=== PATIENT | male | born 1945 | race Caucasian/White ===

== ENCOUNTER → 2016-08-06 | Outpatient (CLI) | payer OTHER ==
[~2016-08-06] MED LIST: GADAVIST IV PRN; OMEG10007 PO; Vitamin D PO
--- NOTE | 2016-08-06 10:42 | DIAGNOSTIC IMAGING REPORT ---
MRI LUMBAR SPINE COMBINATION CLINICAL HISTORY: Metastatic disease. Thoracic lesion. Evaluate for lumbar metastatic disease TECHNIQUE: Sagittal and axial T1, T2 and STIR images were obtained. Imaging was performed before and after the administration of 9 cc of intravenous Gadavist COMPARISON STUDY: PET/CT scan dated November 2015. Octreotide scan dated 02/19/2016 OBSERVATIONS: There are several Schmorl's nodes. There are no areas of marrow replacement suspicious for metastatic disease. L1-2: No disc protrusions or extrusions. No evidence of spinal canal or neural foraminal compromise. L2-3: No disc protrusions or extrusions. No evidence of spinal canal or neural foraminal compromise. L3-4: No disc protrusions or extrusions. No evidence of spinal canal or neural foraminal compromise. L4-5: There is a circumferential disc bulge. There is minimal triangular spinal canal narrowing. There is enhancement of the annulus. L5-S1: No disc protrusions or extrusions. No evidence of spinal canal or neural foraminal compromise. The conus medullaris and cauda equina appear normal. 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 No evidence of metastatic disease 2. Disc bulge and minor spinal stenosis at the L4-5 level. Electronically signed by: Romero Krause M.D. 08/06/2016 10:39 AM Dictated Date/Time: 08/06/2016 10:32 AM
--- NOTE | 2016-08-06 10:45 | DIAGNOSTIC IMAGING REPORT ---
THORACIC SPINE MRI WITH AND WITHOUT CONTRAST HISTORY: Neuroendocrine tumor. Evaluate thoracic lesion. TECHNIQUE: Multiplanar multisequence MRI of the thoracic spine was performed both before and after the intravenous administration of contrast. COMPARISON: Octreotide scan 02/20/2016. Brain MRI 01/14/2012. FINDINGS: Pot Fluxer images demonstrate stable postoperative changes within the right cerebellar hemisphere. The thoracic spinal cord is normal in course, caliber, and signal intensity. A few small broad-based posterior disc bulges seen within the lower thoracic spine without significant central canal or neural foraminal narrowing. Mild degenerative disease throughout the majority of the thoracic spine. Minimal superior endplate compression deformity at T3 is likely old. No acute fractures identified. There is a 1.7 cm T2 hyperintense, T1 hypointense enhancing lesion within the left side of the T11 vertebral body. This likely corresponds to the abnormal radiotracer uptake on the prior octreotide scan. Therefore, this is highly suspicious for metastatic focus. There is an additional 5 mm T2 hyperintense lesion within the left T9 pedicle which is only seen on the sagittal sequences image 10. This is difficult to characterize due to its small size but could represent an additional metastatic lesion. No paraspinal or epidural soft tissue masses identified. IMPRESSION: 1. A 1.7 cm enhancing lesion within the T11 vertebral body which is highly suspicious for a metastatic focus. 2. There is an additional 5 mm T2 hyperintense lesion within the left T9 pedicle which is difficult to characterize due to its small size but could represent an additional metastatic lesion. 3. No paraspinal or epidural soft tissue masses. Electronically signed by: Frantz Cotto M.D. 08/06/2016 10:43 AM Dictated Date/Time: 08/06/2016 10:27 AM
== END | disposition home or self-care (01) ==
LOC: C.MRI 08:14
PROVIDERS: ATTEND Internal Medicine Medical Oncology
DX: R93.8 Abnormal findings on diagnostic imaging of other specified body structures (principal); C7B.02 Secondary carcinoid tumors of liver; M51.26 Other intervertebral disc displacement, lumbar region

== ENCOUNTER → 2017-01-20 | Outpatient (CLI) | payer OTHER ==
--- NOTE | 2017-01-20 18:26 | DIAGNOSTIC IMAGING REPORT ---
THORACIC SPINE COMBO CLINICAL HISTORY: Carcinoid tumor. COMPARISON STUDY: MRI of the thoracic spine August 06, 2016 and Octreoscan August 14, 2016. TECHNIQUE: Utilizing a 1.5 Bernie magnet, multiplanar, multiecho imaging of the thoracic spine was performed pre and postcontrast ministration. Injection of 9 cc of Gadavist IV was uneventful. FINDINGS: Alignment of the thoracic spine is anatomic. Vertebral body heights are maintained. There has been mild increase in size of the T1 hypointense, mildly enhancing lesion within the T11 vertebral body since MRI of August 06, 2016. This lesion now measures 1.9 x 1.9 cm. It previously measured 1.7 x 1.3 cm. There is no epidural extension of tumor. There is no pathologic fracture. A 1.1 cm T2 hyperintense focus within the left T9 pedicle has slightly increased in size since prior exam. This is indeterminate. Multiple Schmorl's nodes are noted, including a suspected Schmorl's node along the superior endplate of L2. Thoracic cord signal and caliber are normal. No intracanalicular mass or fluid collection is present. Paravertebral soft tissues are unremarkable. IMPRESSION: 1. Mild increase in size of the 1.9 cm T11 vertebral body lesion since MRI of August 06, 2016. This lesion corresponds to a focus of mild radiotracer uptake on indium-111 octreotide scan of August 14, 2016 and is consistent with metastatic disease. 2. Mild increase in size of a 1.1 cm T2 hyperintense lesion within the left T9 pedicle. This remains indeterminate and may reflect an additional metastasis. Electronically signed by: Gómez Augustin M.D. 01/20/2017 6:25 PM Dictated Date/Time: 01/20/2017 6:00 PM
== END | disposition home or self-care (01) ==
LOC: C.MRI 15:39
PROVIDERS: ATTEND Internal Medicine Hematology & Oncology
DX: C7A.019 Malignant carcinoid tumor of the small intestine, unspecified portion (principal)

== ENCOUNTER → 2017-01-21 | Outpatient (CLI) | payer OTHER ==
[~2017-01-21] MED LIST changes: -GADAVIST IV PRN; +GADOXETATE DISODIUM (NON-WT BASED PROCEDURE) IV PRN
--- NOTE | 2017-01-22 13:09 | DIAGNOSTIC IMAGING REPORT ---
LIVER COMBO HISTORY: 71 years-old Male CARCINOID TUMOR history of metastatic neuroendocrine tumor. History of prior liver surgery 2013. COMPARISON: Octreoscan 08/14/2016 and 02/19/2016, thoracic spine MR 01/20/2017, PET CT 11/21/2015, CT abdomen and pelvis 12/10/2011 TECHNIQUE: Multiplanar multisequence MRI of the liver was obtained both with and without the use of 10 mL Eovist according to institutional protocol. FINDINGS: There is a focus of restricted diffusion in the left aspect of the T11 vertebral body corresponding with previously described metastatic lesion, 1.5 x 2.1 cm. Previous described T9 vertebral body lesion is not definitely seen. Lung bases and heart are unremarkable as seen. Liver, right kidney, pancreas and adrenal glands are unremarkable. There is a 12 mm T2 hyperintense lesion within the superior pole left kidney suggesting a cyst. The imaged bowel is also within normal limits. No pathologic adenopathy identified. Gallbladder is surgically absent. There are multiple heterogeneous mildly T2 hyperintense lesions scattered throughout the liver measuring up to 1.6 cm which demonstrate restricted diffusion. No significant arterial enhancement is identified, likely secondary to phase of enhancement. There is no biliary ductal dilation. There are postoperative changes from prior partial right hepatic lobe resection. Soft tissues are unremarkable. IMPRESSION: 1. Innumerable hepatic lesions with restricted diffusion measuring up to 1.6 cm are most compatible with diffuse hepatic metastasis . Postoperative changes from prior partial right hepatic lobe resection redemonstrated. 2. Metastatic lesion of the T11 vertebral body redemonstrated. 3. No biliary ductal dilation. The above report was generated using voice recognition software. It may contain grammatical, syntax or spelling errors. Electronically signed by: Nathaniel Lemons M.D. 01/22/2017 1:07 PM Dictated Date/Time: 01/21/2017 11:36 PM
== END | disposition home or self-care (01) ==
LOC: C.MRI 20:28
PROVIDERS: ATTEND Internal Medicine Hematology & Oncology
DX: C7A.019 Malignant carcinoid tumor of the small intestine, unspecified portion (principal)

== ENCOUNTER → 2017-07-23 | Outpatient (CLI) | payer OTHER ==
[~2017-07-23] MED LIST changes: +GADAVIST IV PRN; -GADOXETATE DISODIUM (NON-WT BASED PROCEDURE) IV PRN
--- NOTE | 2017-07-23 10:11 | DIAGNOSTIC IMAGING REPORT ---
PROSTATE MRI COMBO CLINICAL HISTORY: 71 years-old Male presenting with METASTATIC LIVER CANCER. Abnormal FDG uptake within the prostate gland. TECHNIQUE: Multisequence, multiplanar MR imaging of the prostate was performed before and after the administration of intravenous contrast. Additional postprocessing was performed on a separate [employer] workstation by the radiologist for 3-D volumetric segmentation of the prostate and contouring of region(s) of interest (BENJIE) for targeting. IV contrast: 9 cc of Gadavist. COMPARISON: Report from an outside hospital PET/CT dated 07/15/2017. FINDINGS: Prostate: The prostate measures 5.1 cm (DynaCAD prostate boundary segmentation volume 38 mL). Moderate changes of benign prostatic hyperplasia. Precontrast T1 weighted imaging demonstrates no evidence of intrinsic T1 hyperintensity to suggest hemorrhage. Suspicious lesion(s) described below: Lesion (AquaMobileaCAD BENJIE) 1: Location: Left posteromedial peripheral zone at the mid gland. The lesion does not extend across the midline. Size: 6 x 5 x 6 mm (as measured on ADC for PZ lesion and T2WI for TZ lesion) T2W: Not well visualized. No evidence of extraprostatic extension, seminal vesicle invasion, or neurovascular bundle involvement. DWI: 3. Focal mildly/moderately hypointense on ADC and isointense/mildly hyperintense on high b-value DWI. DCE: Not well visualized due to its small size. PI-RADS: 4. Clinically significant cancer is likely to be present. Seminal vesicles normal. Bladder: Normal. Bowel: Visualized portion of the rectum normal. Peritoneum: No free fluid in the pelvis. Lymph nodes: No lymphadenopathy in the visualized portion of the pelvis. Vasculature: Iliac vessels patent. Abdominal wall: Normal. Osseous structures: A 1.7 cm T2 hyperintense, T1 hypointense enhancing lesion within the left posterior acetabulum and a similar-appearing 1.2 cm lesion within the left iliac wing. These are consistent with the metastatic lesions seen on the prior PET/CT. IMPRESSION: 1. 6 x 5 x 6 mm mm lesion in the left peripheral zone at the mid gland. PI-RADS: 4. Clinically significant cancer is likely to be present. This lesion has been segmented for targeted biopsy. However, given the patient's history of metastatic disease in the small size of this lesion, this finding is of little current clinical significance. 2. Benign prostatic hyperplasia. 3. Osseous metastatic disease is again noted. Electronically signed by: Frantz Cotto M.D. 07/23/2017 10:10 AM Dictated Date/Time: 07/23/2017 9:50 AM
== END | disposition home or self-care (01) ==
LOC: C.MRIBC 07:25
PROVIDERS: ATTEND Internal Medicine Medical Oncology
DX: C78.7 Secondary malignant neoplasm of liver and intrahepatic bile duct (principal); C79.51 Secondary malignant neoplasm of bone; N40.0 Benign prostatic hyperplasia without lower urinary tract symptoms